=== PATIENT | female | born 2000 | race Hispanic/Latino ===

== ENCOUNTER 2021-05-25 13:16 | Emergency (ER) | payer OTHER ==
[~2021-05-25] VITALS: Ht 154.9 cm; Wt 86.2 kg
--- NOTE | 2021-05-25 13:29 | NUR ---
ARRIVAL PT TO ED 5 VIA W/C DUE TO SPRAIN RIGHT ANKLE, PT STATES AROUND 10:40 SHE ROLLED HER ANKLE WHILE RUNNING, RT ANKLE SWOLLEN, PT TOOK TYLENOL EARLIER
[2021-05-25] MEDS ORDERED: TORADOL IM STA (13:32)
--- NOTE | 2021-05-25 13:35 | ER.PDOC ---
General Chief Complaint: Requesting Medical Care Stated Complaint: ANKLE INJURY Time seen by MD: 13:34 Source: patient Exam Limitations: no limitations History of Present Illness Initial Comments Right ankle pain. Patient twisted it this morning. Onset: this morning Where: home Severity: moderate Context: twist Modifying Factors: pain on movement Past Medical History Medical History: no pertinent history Surgical History: no surgical history Family History Significant Family History: no pertinent family hx Social History Smoking: non-smoker Alcohol Use: none Drug Use: none Review of Systems Constitutional: no symptoms reported EENTM: no symptoms reported Respiratory: no symptoms reported Cardiovascular: no symptoms reported Gastrointestinal: no symptoms reported Musculoskeletal: see HPI All Other Systems: Reviewed and Negative Physical Exam General Appearance: Alert, No Apparent Distress Foot: nml inspection, non-tender Ankle: tenderness (right), swelling (right) Gait: limited by pain Neuro: sensation nml, motor nml Vascular: no vascular compromise Tendons: tendon function nml Leg/Knee/Thigh: uninjured above ankle Head/ENT: nml inspection, pharynx nml Neck/Back: nml inspection, non-tender Resp/CVS: no resp distress Abdomen: non-tender, no organomegaly Results/Orders Results/Orders Orders - LISA LEGER MD Xr Ankle 3v Rt (05/25/21 13:32) Ketorolac Tromethamine (Toradol) (05/25/21 13:32) Ketorolac Tromethamine (Toradol) (05/25/21 13:36) Vital Signs Date Time Temp Pulse Resp B/P (MAP) Pulse Ox O2 Delivery O2 Flow Rate FiO2 05/25/21 13:55 98.7 76 20 140/88 (105) 98 Room Air 05/25/21 13:40 98.7 76 20 140/88 (105) 98 Room Air 05/25/21 13:40 98.7 76 20 05/25/21 13:40 98.7 76 20 98 Administered Medications Medications (Trade) Dose Ordered Sig/Tsering Route PRN Reason Start Time Stop Time Status Last Admin Dose Admin Ketorolac Tromethamine (Toradol) 60 mg STAT STAT IM 05/25/21 13:32 05/25/21 13:34 DC 05/25/21 13:57 60 MG Progress Progress X rays right ankle: Prominent soft tissue swelling is seen of the lateral ankle. No fracture is demonstrated. Patient refused the boot and crutches. She wants only Larry wrap. ER DEPART Departure Time of Disposition: 14:45 Disposition: 01 HOME / SELF CARE / HOMELESS Impression: Primary Impression: Right ankle injury Condition: Stable Referrals: PCP,UNKNOWN (PCP) PRIMARY CARE PROVIDER Additional Instructions: Ice Ibuprofen Tramadol Follow-up with PCP 1 week Return to ED if worsening pain or concerns Duration or Time Spent with Pa: 20 min Problem Qualifiers Primary Impression: Right ankle injury Encounter type: initial encounter Qualified Codes: S99.911A - Unspecified injury of right ankle, initial encounter LISA LEGER MD May 25, 2021 13:35
[2021-05-25] MEDS ORDERED: TORADOL ONE (13:36)
[2021-05-25 13:40] VITALS: BP 140/88
[2021-05-25 13:55] VITALS: BP 140/88
--- NOTE | 2021-05-25 13:55 | DIREP ---
PROCEDURE:XRAY ANKLE MIN 3VWS-RT COMPARISON:None. INDICATIONS:pain/injury FINDINGS: BONES:Normal. JOINTS:Normal. SOFT TISSUES:Prominent soft tissue swelling is seen of the lateral ankle. OTHER:No additional findings. CONCLUSION:Prominent soft tissue swelling is seen of the lateral ankle. No fracture is demonstrated. Dictated by: Alexandre Steele M.D. on 05/25/2021 at 01:54 PM
== END 2021-05-25 15:04 | disposition home or self-care (01) ==
LOC: ER 13:16
DX: S99.911A Unspecified injury of right ankle, initial encounter (principal); Z79.1 Long term (current) use of non-steroidal anti-inflammatories (NSAID); X50.9XXA Other and unspecified overexertion or strenuous movements or postures, initial encounter; Y93.89 Activity, other specified; Y92.098 Other place in other non-institutional residence as the place of occurrence of the external cause; Y99.8 Other external cause status
CPT/HCPCS: 73610; 96372; 99284; J1885